=== PATIENT | female | born 1985 | race Caucasian/White ===

== ENCOUNTER 2017-10-19 20:39 | Emergency (ER) | payer OTHER ==
[~2017-10-19] VITALS: Ht 165.1 cm; Wt 81.2 kg
[2017-10-19 21:01] VITALS: Ht 165.1 cm; Wt 81.2 kg
[2017-10-19 22:52] VITALS: BP 120/73
== END 2017-10-19 22:52 | disposition home or self-care (01) ==
LOC: ED 20:39
DX: S61.215A Laceration without foreign body of left ring finger without damage to nail, initial encounter (principal); X58.XXXA Exposure to other specified factors, initial encounter; Y93.89 Activity, other specified; Y92.89 Other specified places as the place of occurrence of the external cause; Y99.8 Other external cause status
CPT/HCPCS: J2001